=== PATIENT | male | born 1995 | race African-American/Black ===

== ENCOUNTER 2020-06-05 16:43 | Emergency (ER) | payer OTHER ==
[~2020-06-05] VITALS: Ht 182.9 cm; Wt 65.0 kg
[2020-06-05] MEDS ORDERED: FAMOTIDINE 20MG/2ML VIAL IV STA (17:13)
[2020-06-05] MEDS ORDERED: ONDANSETRON HCL 4MG/2ML INJ IV STA (17:13)
[2020-06-05] MEDS ORDERED: SODIUM CHLORIDE 0.9% 1,000 ML IV ONE (17:15)
[2020-06-05 17:41] VITALS: BP 150/68
[2020-06-05] MEDS ORDERED: ONDA4TAB5 MT (17:48)
[2020-06-05 17:52] LABS: BASOPHILS % 0.5 % (0.0-2.0); EOSINOPHILS % 0.1 % (0.0-5.0); HEMOGLOBIN. 14.3 g/dL (14.0-18.0); MEAN CORPUSCULAR HEMOGLOBIN 33.9 pg (28.0-32.0); MEAN PLATELET VOLUME 8.8 fl (7.4-10.4); MONOCYTES % 7.1 % (2.0-8.0); NEUTROPHILS % 78.3 % (40.0-76.0); PLATELET 264 x1000/uL (130-400); RED BLOOD CELL COUNT 4.22 mill/uL (4.7-6.1); RED CELL DISTRIBUTION WIDTH 13.3 % (11.6-14.6)
[2020-06-05 17:55] LABS: CHLORIDE 99 mEq/L (98-107)
[2020-06-05 18:01] LABS: PROTHROMBIN TIME 11.1 sec (9.6-11.0)
== END 2020-06-05 19:12 | disposition home or self-care (01) ==
LOC: ER 16:43
DX: R11.2 Nausea with vomiting, unspecified (principal); R10.13 Epigastric pain
CPT/HCPCS: 36415; 80053; 83690; 85025; 85610; 96374; 96375; 99284; J2405; J3490; J7030